=== PATIENT | male | born 1995 | race Two or more races ===

== ENCOUNTER 2022-09-29 18:47 | Emergency (ER) | payer SELFPAY ==
[~2022-09-29] VITALS: Ht 182.9 cm; Wt 85.0 kg
[2022-09-29 19:02] VITALS: BP 134/80
[2022-09-29 20:04] LABS: BASOPHILS % 0.2 % (0.0-2.0); EOSINOPHILS % 1.3 % (0.0-5.0); HEMATOCRIT. 35.2 % (42.0-52.0); HEMOGLOBIN. 12.1 g/dL (14.0-18.0); LYMPHOCYTES % 21.7 % (20.0-50.0); MEAN CORPUSCULAR HEMOGLOBIN 30.3 pg (28.0-32.0); MEAN CORPUSCULAR VOLUME 87.8 fL (80.0-94.0); MEAN PLATELET VOLUME 8.9 fl (7.4-10.4); NEUTROPHILS % 67.8 % (40.0-76.0); PLATELET 262 x1000/uL (130-400); RED BLOOD CELL COUNT 4.01 mill/uL (4.7-6.1); RED CELL DISTRIBUTION WIDTH 13.5 % (11.6-14.6)
[2022-09-29 20:10] LABS: CHLORIDE 102 mEq/L (98-107)
[2022-09-29 20:24] LABS: ETHANOL BLOOD < 10 mg/dL
[2022-09-30 00:24] LABS: CLARITY URINE CLEAR (CLEAR); COLOR URINE YELLOW (YELLOW); KETONES URINE TRACE (NEGATIVE); LEUKOCYTE ESTERASE URINE NEGATIVE (NEGATIVE); NITRITE URINE NEGATIVE (NEGATIVE); OCCULT BLOOD URINE NEGATIVE (NEGATIVE); PH URINE 6.5 (4.5-8.0); PROTEIN URINE NEGATIVE (NEGATIVE); SPECIFIC GRAVITY URINE 1.024 (1.005-1.030); UROBILINOGEN URINE 0.2 E.U./dL (0.2-1.0)
[2022-09-30 00:58] LABS: *AMPHETAMINES SCREEN URINE PRESUMTIVE POSITIVE (NEGATIVE); *BARBITURATES SCREEN URINE NEGATIVE (NEGATIVE); *BENZODIAZEPINES SCREEN URINE NEGATIVE (NEGATIVE); *COCAINE SCREEN URINE NEGATIVE (NEGATIVE); CANNABINOID URINE SCREEN PRESUMTIVE POSITIVE (NEGATIVE); METHADONE URINE SCREEN NEGATIVE (NEGATIVE); OPIATES URINE SCREEN PRESUMTIVE POSITIVE (NEGATIVE); PHENCYCLIDINE URINE SCREEN NEGATIVE (NEGATIVE)
[2022-09-30] MEDS ORDERED: ACETAMINOPHEN 325MG TABLET PO ONE (05:45)
== END 2022-09-30 05:54 | disposition home or self-care (01) ==
LOC: ER 18:47
DX: R45.851 Suicidal ideations (principal)
CPT/HCPCS: 36415; 80053; 80305; 80320; 81003; 85025; 99283; G0480

== ENCOUNTER 2022-09-30 07:38 | Emergency (ER) | payer OTHER ==
[~2022-09-30] VITALS: Ht 180.3 cm; Wt 84.0 kg
[2022-09-30 08:10] VITALS: BP 124/64
== END 2022-09-30 08:12 | disposition home or self-care (01) ==
LOC: ER 07:38
DX: R53.1 Weakness (principal); Z59.00 Homelessness unspecified
CPT/HCPCS: 99283